=== PATIENT | female | born 1990 | race Caucasian/White ===

== ENCOUNTER 2024-04-03 05:23 | Emergency (ER) | payer BC ==
[~2024-04-03] VITALS: Ht 167.6 cm; Wt 86.0 kg
[2024-04-03 05:53] VITALS: O2SAT 99
[2024-04-03 06:02] LABS: BASOPHILS % 0.9 % (0.0-2.0); LYMPHOCYTES % 32.6 % (20.0-50.0); MEAN CORPUSCULAR HEMOGLOBIN 29.2 pg (28.0-32.0); MEAN CORPUSCULAR HGB CONC 34.1 g/dL (31.0-37.0); MEAN CORPUSCULAR VOLUME 85.6 fL (81.0-99.0); MEAN PLATELET VOLUME 7.5 fl (7.4-10.4); MONOCYTES % 7.7 % (2.0-8.0); NEUTROPHILS % 54.8 % (40.0-76.0); PLATELET 345 x1000/uL (130-400); RED BLOOD CELL COUNT 4.79 mill/uL (4.2-5.4); RED CELL DISTRIBUTION WIDTH 13.3 % (11.6-14.6)
[2024-04-03 06:15] LABS: CHLORIDE 108 mEq/L (98-107); POTASSIUM 3.8 mEq/L (3.5-5.1); SODIUM 138 mEq/L (136-145)
[2024-04-03 06:16] LABS: CARBON DIOXIDE 24 mEq/L (21-32)
[2024-04-03 06:17] LABS: CALCIUM 9.7 mg/dL (8.7-10.4)
[2024-04-03 06:21] LABS: CREATININE 0.9 mg/dL (0.6-1.0)
[2024-04-03 06:22] LABS: GLUCOSE 94 mg/dL (70-105); UREA NITROGEN BLOOD 10 mg/dL (9-23)
[2024-04-03 06:23] LABS: ALANINE AMINOTRANSFERASE 38 IU/L (10-49); ALBUMIN 4.8 g/dL (3.2-4.8); ASPARTATE AMINOTRANSFERASE 20 IU/L (<34)
[2024-04-03 06:24] LABS: BILIRUBIN DIRECT 0.2 mg/dL (<=3.0); BILIRUBIN TOTAL 0.6 mg/dL (0.1-1.0); PROTEIN TOTAL 7.6 g/dL (6.0-8.3)
[2024-04-03] MEDS ORDERED: MORPHINE SULFATE 4 MG/ML INJ (FOR IV/IM USE) IV STA (07:13)
[2024-04-03] MEDS ORDERED: ONDANSETRON HCL 4MG/2ML INJ IV STA (07:13)
[2024-04-03] MEDS: SODIUM CHLORIDE 0.9% 1,000 ML IV ONE (07:15)
[2024-04-03] MEDS ORDERED: PANTOPRAZOLE SODIUM 40 MG/VIAL IV ONE (07:15)
[2024-04-03] MEDS: MORPHINE SULFATE 4 MG/ML INJ (FOR IV/IM USE) IV NR (10:15)
[2024-04-03] MEDS: ONDANSETRON HCL 4MG/2ML INJ IV NR (10:15)
[2024-04-03] MEDS: PANTOPRAZOLE SODIUM 40 MG/VIAL IV NR (11:13)
[2024-04-03 11:24] LABS: HCG SCREEN NEGATIVE
[2024-04-03] MEDS: IOHEXOL-300 100 ML BOTTLE ONE (12:36)
[2024-04-03] MEDS ORDERED: LACT1CAP78 MT (14:14)
[2024-04-03] MEDS ORDERED: METR-167 MT (14:14)
[2024-04-03] MEDS ORDERED: CIPR500T5 MT (14:14)
[2024-04-03 16:32] VITALS: BP 98/66; PULSE 89; RESP 13; TEMP 98
== END 2024-04-03 16:31 | disposition home or self-care (01) ==
LOC: ER 05:23
DX: I10 Essential (primary) hypertension (principal)
CPT/HCPCS: 80076; 80048; 81025; 84703; 83690; 85025; 86850; 86900; 86901; 36415; 74177; 96361; 96365; 96375; 99285; Q9967; J2405; J2470; J2270; J7030; Z7610 ×3

== ENCOUNTER 2024-12-05 13:05 | Emergency (ER) | payer BC ==
[~2024-12-05] VITALS: Ht 162.6 cm; Wt 180.0 kg
[~2024-12-05 13:05] MED LIST: CIPR500T5 MT; LACT1CAP78 MT; METR-167 MT
[2024-12-05 13:06] VITALS: O2SAT 100
[2024-12-05] MEDS: KETOROLAC 30MG/ML VIAL IV STA (14:48)
[2024-12-05] MEDS: SODIUM CHLORIDE 0.9% 1,000 ML IV ONE (14:48)
[2024-12-05] MEDS: ONDANSETRON HCL 4MG/2ML INJ IV STA (14:48)
[2024-12-05 15:21] LABS: CHLORIDE 106 mEq/L (98-107); POTASSIUM 3.6 mEq/L (3.5-5.1); SODIUM 140 mEq/L (136-145)
[2024-12-05 15:22] LABS: CALCIUM 9.4 mg/dL (8.7-10.4); CARBON DIOXIDE 25 mEq/L (21-32)
[2024-12-05 15:27] LABS: CREATININE 0.7 mg/dL (0.6-1.0); GLUCOSE 92 mg/dL (70-105); UREA NITROGEN BLOOD 7 mg/dL (9-23)
[2024-12-05 15:33] LABS: BASOPHILS % 0.6 % (0.0-2.0); EOSINOPHILS % 2.7 % (0.0-5.0); HEMATOCRIT. 39.8 % (36.0-48.0); HEMOGLOBIN. 13.4 g/dL (12.0-16.0); LYMPHOCYTES % 20.2 % (20.0-50.0); MEAN CORPUSCULAR HEMOGLOBIN 28.9 pg (28.0-32.0); MEAN CORPUSCULAR HGB CONC 33.7 g/dL (31.0-37.0); MEAN CORPUSCULAR VOLUME 85.9 fL (81.0-99.0); MEAN PLATELET VOLUME 7.6 fl (7.4-10.4); MONOCYTES % 7.5 % (2.0-8.0); PLATELET 347 x1000/uL (130-400); RED BLOOD CELL COUNT 4.63 mill/uL (4.2-5.4); RED CELL DISTRIBUTION WIDTH 13.2 % (11.6-14.6); WHITE BLOOD COUNT 10.3 x1000/uL (4.5-11.0)
[2024-12-05 15:44] LABS: TROPONIN I HIGH SENSITIVITY < 4 ng/L (3.0-34)
[2024-12-05 15:48] VITALS: BP 143/72; PULSE 90; RESP 18; TEMP 36.8; O2SAT 100
[2024-12-05 15:51] LABS: PROTHROMBIN TIME 10.9 sec (9.6-11.0)
[2024-12-05 15:59] LABS: HCG SCREEN NEGATIVE
[2024-12-05 16:56] LABS: CLARITY URINE CLEAR (CLEAR); COLOR URINE YELLOW (YELLOW); GLUCOSE URINE NEGATIVE (NEGATIVE); KETONES URINE NEGATIVE (NEGATIVE); LEUKOCYTE ESTERASE URINE NEGATIVE (NEGATIVE); NITRITE URINE NEGATIVE (NEGATIVE); OCCULT BLOOD URINE NEGATIVE (NEGATIVE); PROTEIN URINE NEGATIVE (NEGATIVE); SPECIFIC GRAVITY URINE 1.004 (1.005-1.030); UROBILINOGEN URINE 0.2 E.U./dL (0.2-1.0)
== END 2024-12-05 17:21 | disposition home or self-care (01) ==
LOC: ER 13:54
DX: R07.89 Other chest pain (principal)
CPT/HCPCS: 99285; 96374; 71045; 96375; 80048; 81003; 81025; 82962; 84703; 85025; 85610; 84484; 36415; 93005; J1885; J2405; J7030